=== PATIENT | female | born 1955 | race Caucasian/White ===

== ENCOUNTER 2019-08-18 10:24 | Inpatient (IN) | payer OTHER ==
[~2019-08-18] VITALS: Ht 162.6 cm; Wt 70.3 kg
[~2019-08-18 10:24] MED LIST: ACET-1172 PO; ALBU17AE26; FLEXERIL PO; FLUT1DIS; GERD MED PO; METF-379 PO; SIMV5TAB59 PO
[2019-08-18 10:49] VITALS: BP_SYST 158
--- NOTE | 2019-08-18 10:50 | NUR ---
Patient to ER bed to gown for evaluation. Side rails up.
--- NOTE | 2019-08-18 11:02 | NUR ---
Patient presented to ER C/O headache. Patient A&Ox4, skin pink and warm, ambulatory to ER, afebrile, pain 05/05, denies N/V/D. Pt states headache since yesterday, sharp pain at base of skull radiating to behind ear. 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 Follow-up care for anurism SX October 2019
--- NOTE | 2019-08-18 11:05 | NUR ---
ER at bedside examining patient.
--- NOTE | 2019-08-18 11:30 | NUR ---
ER Dr. Galvan at bedside examining patient.
[2019-08-18] MEDS ORDERED: ACETAMINOPHEN 500 MG TABLET PO ONE (11:45)
[2019-08-18] MEDS ORDERED: MORPHINE 2 MG/ML INJ. SYRINGE IVP ONE (11:45)
[2019-08-18 12:06] LABS: CALCIUM 9.7 mg/dL (8.4-11.0); CREATININE 0.97 mg/dL (0.55-1.30); POTASSIUM 4.4 mmol/L (3.5-5.1)
[2019-08-18 12:14] LABS: ALBUMIN 4.1 g/dL (3.4-4.8); TOTAL BILIRUBIN 0.2 mg/dL (0.0-1.0)
[2019-08-18 12:16] LABS: BASOPHILS # (AUTO) 0.1 K/uL (0.0-0.2); BASOPHILS % (AUTO) 0.9 % (0.0-2.0); EOSINOPHILS # (AUTO) 0.5 K/uL (0.0-0.4); EOSINOPHILS % (AUTO) 9.7 % (0.0-4.0); HEMATOCRIT 34.6 % (36-48); HEMOGLOBIN 11.6 g/dL (12.0-16.0); LYMPHOCYTES # (AUTO) 1.9 K/uL (1.0-5.5); MEAN CORPUSCULAR HEMOGLOBIN 30 pg (27-31); MEAN CORPUSCULAR HGB CONC 34 % (32-36); MEAN CORPUSCULAR VOLUME 91 fL (79.0-98.0); MONOCYTES # (AUTO) 0.4 K/uL (0.0-1.0); MONOCYTES % (AUTO) 7.5 % (1.7-9.3); NEUTROPHILS # (AUTO) 2.6 K/uL (1.8-7.7); NEUTROPHILS % (AUTO) 47.9 % (40.0-70.0); PLATELET COUNT (AUTO) 276 K/uL (130-430); WHITE BLOOD COUNT (AUTO) 5.4 K/uL (4.8-10.8)
[2019-08-18] MEDS ORDERED: IOHEXOL 100 ML IV ONE (13:44)
[2019-08-18] MEDS ORDERED: LABETALOL 100 MG/ 20ML VIAL IVP PRN (17:30)
[2019-08-18] MEDS ORDERED: SITA1TBM4 PO (18:00)
[2019-08-18] MEDS ORDERED: LIPA1CAP23 PO (18:00)
[2019-08-18] MEDS ORDERED: CLOP75TA32 PO (18:00)
[2019-08-18] MEDS ORDERED: LIP40 PO (18:00)
[2019-08-18] MEDS ORDERED: AMLO2.5T2 PO (18:00)
[2019-08-18] MEDS ORDERED: MONT10TA25 PO (18:00)
[2019-08-18] MEDS ORDERED: LISI-600 PO (18:00)
[2019-08-18] MEDS ORDERED: GLIM2TAB2 PO (18:00)
--- NOTE | 2019-08-18 18:00 | NUR ---
Medication reconciliation completed with information provided by Patient. Any prior medication reconciliation on file was reviewed and corrected.
[2019-08-18 18:01] VITALS: BP_SYST 145
--- NOTE | 2019-08-18 18:04 | NUR ---
Patient will be admitted to care of Dr. Hurst. Admitted to tele unit. Will go to [id number] . Belongings list completed. Complete and up to date summary report printed. SBAR report to be given at bedside with opportunity for questions.
--- NOTE | 2019-08-18 19:00 | NUR ---
Patient transferred to unit in stable condition; denies any pain at this time. VS: T 96.0, HR 66, RR 18, 143/70, O2 sat 96%.
--- NOTE | 2019-08-18 20:00 | NUR ---
AMA: Patient does not wish to proceed with medical care recommended by dr. lauren. Patient given information related to possible complications, up to and including , which could occur as a result of leaving hospital at this time. Patient verbalizes understanding of risks involved leaving against medical advice. Patient has signed AMA form.
== END 2019-08-18 20:00 | disposition left against medical advice (07) | DRG 103 ==
LOC: SED 10:24 → STU 17:25
PROVIDERS: ADMIT Internal Medicine; ATTEND Internal Medicine
DX: R51 Headache (principal); I65.22 Occlusion and stenosis of left carotid artery; I10 Essential (primary) hypertension; J45.909 Unspecified asthma, uncomplicated; Z86.73 Personal history of transient ischemic attack (TIA), and cerebral infarction without residual deficits; Z90.49 Acquired absence of other specified parts of digestive tract; Z79.899 Other long term (current) drug therapy; Z88.6 Allergy status to analgesic agent
CPT/HCPCS: 36415; 70496; 80053; 85025; 96374; 99285; G0378; J2270; Q9967

== ENCOUNTER 2021-01-19 20:14 | Emergency (ER) | payer OTHER ==
[~2021-01-19] VITALS: Ht 162.6 cm; Wt 74.8 kg
[2021-01-19 20:14] VITALS: BP_SYST 159
[~2021-01-19 20:14] MED LIST changes: +AMLO2.5T2 PO; +CLOP75TA32 PO; +GLIM2TAB PO; +LIP40 PO; +LIPA1CAP23 PO; +LISI20TA30 PO; +MONT10TA33 PO; +SITA1TBM4 PO
[2021-01-19 21:57] LABS: BASOPHILS # (AUTO) 0.1 K/uL (0.0-0.2); BASOPHILS % (AUTO) 0.7 % (0.0-2.0); EOSINOPHILS # (AUTO) 0.3 K/uL (0.0-0.4); EOSINOPHILS % (AUTO) 4.2 % (0.0-4.0); HEMATOCRIT 30.9 % (36-48); HEMOGLOBIN 10.3 g/dL (12.0-16.0); LYMPHOCYTES % (AUTO) 39.1 % (20.5-51.5); MEAN CORPUSCULAR HEMOGLOBIN 29 pg (27-31); MEAN CORPUSCULAR HGB CONC 33 % (32-36); MEAN CORPUSCULAR VOLUME 88 fL (79.0-98.0); MONOCYTES # (AUTO) 0.6 K/uL (0.0-1.0); MONOCYTES % (AUTO) 8.2 % (1.7-9.3); NEUTROPHILS # (AUTO) 3.6 K/uL (1.8-7.7); NEUTROPHILS % (AUTO) 47.8 % (40.0-70.0); PLATELET COUNT (AUTO) 297 K/uL (130-430); RED BLOOD CELL COUNT(AUTO) 3.51 MIL/uL (4.2-6.2); RED CELL DISTRIBUTION WIDTH 14.1 % (9.0-15.0); WHITE BLOOD COUNT (AUTO) 7.6 K/uL (4.8-10.8)
[2021-01-19 22:25] LABS: ANION GAP 8 (5-15); CHLORIDE 106 mmol/L (98-107); CREATININE 1.41 mg/dL (0.55-1.30); GLUCOSE 220 mg/dL (70-99); POTASSIUM 3.7 mmol/L (3.5-5.1); SODIUM SERUM 143 mmol/L (136-145); UREA NITROGEN, BLOOD 27 mg/dL (8-21)
[2021-01-19 22:26] LABS: INR 0.9 (0.8-1.2); PROTHROMBIN TIME 9.4 SECS (9.5-12.5)
[2021-01-19 22:31] LABS: ALANINE AMINOTRANSFERASE 18 U/L (12-78); ALBUMIN 3.6 g/dL (3.4-4.8); AMYLASE 34 U/L (0-100); ASPARTATE AMINOTRANSFERASE 10 U/L (10-37); LACTATE DEHYDROGENASE 150 U/L (81-234); LIPASE 171 U/L (73-393); TOTAL BILIRUBIN 0.1 mg/dL (0.0-1.0)
[2021-01-19 22:37] LABS: GFR AFRICAN AMERICAN 48 mL/min (>90)
[2021-01-19 22:46] LABS: C-REACTIVE PROTEIN QUANT < 0.2 mg/dL (0-0.5)
[2021-01-19 23:59] LABS: BILIRUBIN,URINE NEGATIVE (NEGATIVE); BLOOD, URINE NEGATIVE (NEGATIVE); CLARITY/URINE CLEAR (CLEAR); COLOR,URINE YELLOW (YELLOW); GLUCOSE,URINE 1+ (NEGATIVE); KETONES,URINE NEGATIVE (NEGATIVE); LEUKOCYTE ESTERASE ,URINE 1+ (NEGATIVE); NITRITE, URINE NEGATIVE (NEGATIVE); PROTEIN URINE NEGATIVE (NEGATIVE); UROBILINOGEN,URINE 0.2 (0.2-1.0)
[2021-01-20 00:02] LABS: BACTERIA,URINE FEW /HPF (None Seen); RBC,URINE 0-3 /HPF (0-3)
[2021-01-20] MEDS ORDERED: CIPR500T5 PO (00:21)
[2021-01-20] MEDS ORDERED: CIPROFLOXACIN HCL 500 MG TABLET PO ONE (00:30)
[2021-01-20 00:32] VITALS: BP_SYST 159
== END 2021-01-20 00:32 | disposition home or self-care (01) ==
LOC: SED 20:14
DX: N39.0 Urinary tract infection, site not specified (principal); D64.9 Anemia, unspecified; E11.65 Type 2 diabetes mellitus with hyperglycemia; I10 Essential (primary) hypertension; J45.909 Unspecified asthma, uncomplicated; Z79.84 Long term (current) use of oral hypoglycemic drugs; Z88.6 Allergy status to analgesic agent; Z79.899 Other long term (current) drug therapy
CPT/HCPCS: 36415; 76376; 80053; 81000; 82150; 82962; 83605; 83615; 83690; 85025; 85610-TC; 85730-TC; 86140; 87086; 99284

== ENCOUNTER 2022-12-23 17:17 | Emergency (ER) | payer OTHER ==
[~2022-12-23 17:17] MED LIST changes: +CIPR500T5 PO; +MONT-40 PO; -MONT10TA33 PO
[2022-12-23 17:40] VITALS: BP_SYST 150
[2022-12-23] MEDS ORDERED: LORazepam 2 MG/ML VIAL IVP ONE (19:30)
[2022-12-23] MEDS ORDERED: NACL 0.9% 1,000 ML IV ONE (19:30)
[2022-12-23 19:38] LABS: BASOPHILS # (AUTO) 0.1 K/uL (0.0-0.2); EOSINOPHILS # (AUTO) 0.2 K/uL (0.0-0.4); EOSINOPHILS % (AUTO) 3.5 % (0.0-4.0); HEMATOCRIT 34.4 % (36-48); HEMOGLOBIN 11.7 g/dL (12.0-16.0); LYMPHOCYTES % (AUTO) 42.1 % (20.5-51.5); MEAN CORPUSCULAR HEMOGLOBIN 30 pg (27-31); MEAN CORPUSCULAR HGB CONC 34 % (32-36); MEAN CORPUSCULAR VOLUME 90 fL (79.0-98.0); MONOCYTES # (AUTO) 0.5 K/uL (0.0-1.0); MONOCYTES % (AUTO) 7.5 % (1.7-9.3); NEUTROPHILS # (AUTO) 3.2 K/uL (1.8-7.7); NEUTROPHILS % (AUTO) 45.9 % (40.0-70.0); PLATELET COUNT (AUTO) 332 K/uL (130-430); RED BLOOD CELL COUNT(AUTO) 3.84 MIL/uL (4.2-6.2); RED CELL DISTRIBUTION WIDTH 13.3 % (9.0-15.0)
[2022-12-23 19:47] LABS: ANION GAP 10 (5-15); CALCIUM 9.6 mg/dL (8.4-11.0); CHLORIDE 105 mmol/L (98-107); CREATININE 1.33 mg/dL (0.55-1.30); GFR AFRICAN AMERICAN 51 mL/min (>90); GLUCOSE 106 mg/dL (70-99); UREA NITROGEN, BLOOD 34 mg/dL (8-21)
[2022-12-23 20:13] LABS: TOTAL BILIRUBIN 0.3 mg/dL (0.0-1.0)
[2022-12-23 20:14] LABS: ALANINE AMINOTRANSFERASE 9 U/L (12-78); ALBUMIN 3.6 g/dL (3.4-4.8); ASPARTATE AMINOTRANSFERASE 11 U/L (10-37)
[2022-12-23 23:05] VITALS: BP_SYST 154
== END 2022-12-23 23:05 | disposition home or self-care (01) ==
LOC: SED 17:17
DX: R53.1 Weakness (principal); E86.0 Dehydration; R42 Dizziness and giddiness; J45.909 Unspecified asthma, uncomplicated; I10 Essential (primary) hypertension; Z88.6 Allergy status to analgesic agent; Z79.899 Other long term (current) drug therapy
CPT/HCPCS: 99285; 96374; 70450; 96361; 80053; 82962; 85025; 84484; 36415; 93005; 76376; J2060; J7030

== ENCOUNTER 2023-06-18 12:54 | Emergency (ER) | payer OTHER ==
[~2023-06-18] VITALS: Ht 160 cm; Wt 72.1 kg
[2023-06-18 13:10] VITALS: BP_SYST 95; PULSE 81; RESP 18; TEMP 98; O2SAT 98
[2023-06-18 13:38] LABS: BASOPHILS % (AUTO) 0.6 % (0.0-2.0); EOSINOPHILS # (AUTO) 0.3 K/uL (0.0-0.4); HEMATOCRIT 35.9 % (36-48); LYMPHOCYTES # (AUTO) 1.6 K/uL (1.0-5.5); LYMPHOCYTES % (AUTO) 24.3 % (20.5-51.5); MEAN CORPUSCULAR HEMOGLOBIN 30 pg (27-31); MEAN CORPUSCULAR HGB CONC 33 % (32-36); MEAN CORPUSCULAR VOLUME 89 fL (79.0-98.0); MONOCYTES # (AUTO) 0.7 K/uL (0.0-1.0); MONOCYTES % (AUTO) 10.6 % (1.7-9.3); NEUTROPHILS # (AUTO) 3.9 K/uL (1.8-7.7); NEUTROPHILS % (AUTO) 59.5 % (40.0-70.0); PLATELET COUNT (AUTO) 319 K/uL (130-430); RED BLOOD CELL COUNT(AUTO) 4.05 MIL/uL (4.2-6.2); RED CELL DISTRIBUTION WIDTH 13.4 % (9.0-15.0); WHITE BLOOD COUNT (AUTO) 6.6 K/uL (4.8-10.8)
[2023-06-18 13:53] LABS: ANION GAP 9 (5-15); CALCIUM 10.5 mg/dL (8.4-11.0); CARBON DIOXIDE 26 mmol/L (23-29); CHLORIDE 104 mmol/L (98-107); CREATININE 1.48 mg/dL (0.55-1.30); GFR AFRICAN AMERICAN 45 mL/min (>90); GLUCOSE 188 mg/dL (74-106); SODIUM SERUM 139 mmol/L (136-145); UREA NITROGEN, BLOOD 29 mg/dL (8-21)
[2023-06-18 13:58] LABS: GFR NON AFRICAN-AMERICAN 37 mL/min (>90)
[2023-06-18 14:05] LABS: ALANINE AMINOTRANSFERASE 13 U/L (12-78); ALBUMIN 3.9 g/dL (3.4-4.8); ASPARTATE AMINOTRANSFERASE 7 U/L (10-37); FREE T4 (FREE THYROXINE) 1.1 ng/dL (0.6-1.6); PHOSPHORUS 3.2 mg/dL (2.7-4.5); THYROID STIMULATING HORMONE 2.83 uIu/mL (0.34-4.82); TOTAL BILIRUBIN 0.3 mg/dL (0.0-1.0); TOTAL PROTEIN, SERUM 6.7 g/dL (6.4-8.3)
[2023-06-18 14:34] VITALS: BP_SYST 106; PULSE 82; RESP 16; TEMP 98.2; O2SAT 97
[2023-06-18 14:37] LABS: BILIRUBIN,URINE 1+ (NEGATIVE); BLOOD, URINE NEGATIVE (NEGATIVE); CLARITY/URINE CLEAR (CLEAR); COLOR,URINE YELLOW (YELLOW); GLUCOSE,URINE NEGATIVE (NEGATIVE); KETONES,URINE TRACE (NEGATIVE); LEUKOCYTE ESTERASE ,URINE NEGATIVE (NEGATIVE); NITRITE, URINE NEGATIVE (NEGATIVE); PROTEIN URINE 1+ (NEGATIVE); UROBILINOGEN,URINE 0.2 (0.2-1.0)
[2023-06-18 14:45] LABS: BACTERIA,URINE RARE /HPF (None Seen); HYALINE CASTS, URINE 0-3 /LPF (None Seen); RBC,URINE 0-3 /HPF (0-3); WBC,URINE 0-3 /HPF (0-3)
== END 2023-06-18 14:32 | disposition home or self-care (01) ==
LOC: SED 12:54
DX: R53.1 Weakness (principal); E11.9 Type 2 diabetes mellitus without complications; N17.9 Acute kidney failure, unspecified; J45.909 Unspecified asthma, uncomplicated; I10 Essential (primary) hypertension; Z88.6 Allergy status to analgesic agent; Z79.899 Other long term (current) drug therapy
CPT/HCPCS: 36415; 80053; 81000; 81001; 81015; 83735; 84100; 84439; 84443; 84484; 85025; 93005; 99284